=== PATIENT | male | born 1960 | race Caucasian/White ===

== ENCOUNTER 2017-08-17 22:27 | Emergency (ER) | payer MEDICAID ==
[~2017-08-17] VITALS: Ht 177.8 cm; Wt 90.0 kg
[2017-08-17] MEDS ORDERED: PLEASE ENTER ALLERGIES MC SCH (23:00)
[2017-08-17] MEDS ORDERED: IBUPROFEN 200 MG TABLET ONE (23:51)
[2017-08-17] MEDS ORDERED: HYDROcodone/APAP 5/325 TABLET ONE (23:52)
[2017-08-18] MEDS ORDERED: IBUPROFEN 200 MG TABLET PO ONE
[2017-08-18] MEDS ORDERED: HYDROcodone/APAP 5/325 TABLET PO ONE
[2017-08-18 00:06] VITALS: BP 199/117
== END 2017-08-18 01:02 | disposition home or self-care (01) ==
LOC: ED 23:58
DX: R10.2 Pelvic and perineal pain (principal); I10 Essential (primary) hypertension; F17.200 Nicotine dependence, unspecified, uncomplicated; Z59.0 Homelessness
CPT/HCPCS: 72170; 72192; 99284